=== PATIENT | male | born 1985 | race Caucasian/White ===

== ENCOUNTER 2021-04-29 10:06 | Outpatient (CLI) | payer SELFPAY ==
[2021-04-29 11:22] LABS: Hemoglobin 15.2 g/dL (13.5-17.5); Mean Corpuscular HGB CONC 33.9 g/dL (32.0-36.0); Mean Corpuscular Hemoglobin 30.4 pg (27.0-33.0); Mean Corpuscular Volume 89.8 fl (81.2-95.1); Mean Platelet Volume 9.2 fl (7.4-10.4); Platelet Count 304 10x3/uL (150-450); RBC Distribution Width 12.3 % (11.5-14.5); White Blood Cell (WBC) Count 6.4 10x3/uL (3.5-10.5)
[2021-04-29 21:44] LABS: SARS-CoV-2 PCR by NAA Not Detected (NotDetected)
== END 2021-04-29 10:07 | disposition home or self-care (01) ==
LOC: LABBT 10:06
PROVIDERS: ATTEND Oral & Maxillofacial Surgery
DX: Z01.812 Encounter for preprocedural laboratory examination (principal); S02.652A Fracture of angle of left mandible, initial encounter for closed fracture; Z20.822 Contact with and (suspected) exposure to COVID-19
CPT/HCPCS: 85027; U0003; U0005

== ENCOUNTER 2021-04-30 07:19 | Day surgery (SDC) | payer OTHER ==
[~2021-04-30 07:19] MED LIST: Chlorhexidine Gluconate 15 ML UDCUP SSP ONE; Dexamethasone 4 mg/ml Vial ONE; ceFAZolin 2 GM/DEX 5% 100 ML BAG ONE
[2021-04-30] MEDS ORDERED: Fentanyl 100 MCG/2 ML VIAL ONE ×2 (07:22→07:46)
[2021-04-30] MEDS ORDERED: Chlorhexidine Gluconate 15 ML UDCUP SSP ONE ×2 (07:42→14:52)
[2021-04-30] MEDS ORDERED: Lidocaine 1% w/Epinephrine 1:100K 20 ML VIAL ONE (07:42)
[2021-04-30] MEDS ORDERED: HYDROmorphone 0.5 MG/0.5 ML SYRINGE ONE (07:46)
[2021-04-30] MEDS ORDERED: Lidocaine 2% Jelly 5 ML TUBE ONE (07:47)
[2021-04-30] MEDS ORDERED: Promethazine HCl 25 MG/ML VIAL ONE (07:47)
[2021-04-30] MEDS ORDERED: AFRIN NASAL MIST 15 ML BOT ONE (07:47)
[2021-04-30] MEDS ORDERED: PROPOFOL 200 MG/20 ML VIAL ONE (08:13)
[2021-04-30] MEDS ORDERED: ePHEDrine 50 MG/ML VIAL ONE (08:13)
[2021-04-30] MEDS ORDERED: Lidocaine 1% PF 5 ML VIAL ONE (08:13)
[2021-04-30] MEDS ORDERED: Ondansetron PF 4 MG/2 ML Vial ONE (08:13)
[2021-04-30] MEDS ORDERED: Rocuronium Bromide 10 MG/ML (10ML VIAL) ONE (08:13)
[2021-04-30] MEDS ORDERED: Ketorolac Tromethamine 30 MG/ML VIAL ONE (08:13)
[2021-04-30] MEDS ORDERED: Bacitracin Zinc Ointment 30 gm TUBE ONE (10:06)
[2021-04-30] MEDS ORDERED: Ondansetron HCl/PF 4 MG/2 ML Vial IVP PRN (10:44)
[2021-04-30] MEDS ORDERED: PACU-Morphine 4MG/ML VIAL SLOW IVP PRN (10:44)
[2021-04-30] MEDS ORDERED: Promethazine HCl 25 MG/ML VIAL IM PRN (10:44)
[2021-04-30] MEDS ORDERED: Promethazine HCl 25 MG/ML VIAL IVPB PRN (10:44)
[2021-04-30] MEDS ORDERED: HYDROmorphone 2 MG/ML VIAL SLOW IVP PRN (10:44)
[2021-04-30] MEDS ORDERED: Sodium Chloride 0.9% 10 ML ONE (13:23)
[2021-04-30] MEDS ORDERED: Morphine 4 MG/ML VIAL ONE (13:23)
[2021-04-30] MEDS ORDERED: Hydrocodone-Acetamin 15 ML UDCUP ONE (14:32)
[2021-04-30] MEDS ORDERED: ceFAZolin 2 GM/DEX 5% 100 ML BAG ONE (15:35)
[2021-05-03] MEDS ORDERED: Dexamethasone 4 mg/ml Vial SLOW IVP SCH (06:45)
[2021-05-03] MEDS ORDERED: Chlorhexidine Gluconate 15 ML UDCUP SSP SCH (06:45)
[2021-05-03] MEDS ORDERED: ceFAZolin Sodium/D5W 2 GM in Premix Bag 1 BAG IVPB SCH (06:45)
== END 2021-04-30 16:50 | disposition home or self-care (01) ==
LOC: SDC 07:19
PROVIDERS: ATTEND Oral & Maxillofacial Surgery
PROC: 2W31X9Z Immobilization of Face using Wire (ICD-10-PCS; principal; 2021-04-30)
PROC: 0CDXXZ0 Extraction of Lower Tooth, Single, External Approach (ICD-10-PCS; principal; 2021-04-30)
PROC: 0NSV04Z Reposition Left Mandible with Internal Fixation Device, Open Approach (ICD-10-PCS; principal; 2021-04-30)
DX: S02.652B Fracture of angle of left mandible, initial encounter for open fracture (principal); S02.5XXB Fracture of tooth (traumatic), initial encounter for open fracture; F17.210 Nicotine dependence, cigarettes, uncomplicated; X58.XXXA Exposure to other specified factors, initial encounter
CPT/HCPCS: 70486; 76377; C1713; J1100; J1170; J1885; J2270; J2405; J2550; J2704; J3010; J3490